=== PATIENT | male | born 1990 | race Caucasian/White ===

== ENCOUNTER 2021-06-29 08:00 | Outpatient (RCR) | payer BC, SELFPAY | END 2021-08-31 15:11 | LOC: HO.PTWFD 08:00 | PROVIDERS: Visit Provider Orthopaedic Surgery | DX: S82.141D Displaced bicondylar fracture of right tibia, subsequent encounter for closed fracture with routine healing (principal) | CPT/HCPCS: 97014; 97110; 97116; 97140; 97162; 97164; 97535 ==